=== PATIENT | male | born 1950 | race Caucasian/White ===

== ENCOUNTER → 2016-07-08 | Outpatient (CLI) | payer OTHER | END | disposition home or self-care (01) | LOC: PCVCCLINIC 11:46 | PROVIDERS: ATTEND Internal Medicine | DX: I25.10 Atherosclerotic heart disease of native coronary artery without angina pectoris (principal); I10 Essential (primary) hypertension; E78.5 Hyperlipidemia, unspecified; E11.9 Type 2 diabetes mellitus without complications | CPT/HCPCS: 80061; 93005; G0463 ==

== ENCOUNTER → 2016-08-18 | Outpatient (CLI) | payer OTHER ==
--- NOTE | 2016-08-18 13:43 | PCVCIMAG ---
APPROVED REPORT Study performed: 08/18/2016 11:20:08 EXAM: Comprehensive 2D, Doppler, and color-flow Echocardiogram Patient Location: Echo lab Status: routine Other Information Study Quality: Technically Difficult Indications Pulmonary Hypertension Diabetes Dyspnea CAD Hypertension/HDD tachycardia 2D Dimensions LVEF(%): 67.69 (>50%) IVSd: 12.59 (7-11mm)LVOT Diam: 21.52 (18-24mm) LVDd: 53.42 mm PWd: 12.45 (7-11mm)Ascending Ao: 37.87 (22-36mm) LVDs: 33.13 (25-40mm) Left Atrium: 39.06 (27-40mm) Aortic Root: 29.21 mm LV Single Plane 4CH: 51.86 % LV Single Plane 2CH: 58.49 %Watt's LVEF: 55.17 % Biplane EF: 53.0 % Volumes Left Atrial Volume (Systole) Single Plane 4CH: 53.79 mLSingle Plane 2CH: 62.60 mL LA ESV Index: 25.00 mL/m2 Aortic Valve AoV Peak Masood.: 1.40 m/s AO Peak Gr.: 7.89 mmHgLVOT Max P.36 mmHg LVOT Max V: 0.92 m/s ARTUR Vmax: 2.37 cm2 AI Vmax: 4.97 m/s AI [place]: 2.37 m/s2 AI PHT: 608.03 ms Mitral Valve E/A Ratio: 3.5 MV Decel. Time: 174.54 ms MV E Max Masood.: 1.23 m/s MV A Masood.: 0.35 m/s IVRT: 69.20 ms Pulmonary Valve PV Peak Masood.: 0.93 m/sPV Peak Gr.: 3.46 mmHg Pulmonary Vein P Vein S: 0.30 m/sP Vein A: 0.26 m/s P Vein D: 0.92 m/sP Vein A Dur.: 115.3 msec P Vein S/D Ratio: 0.33 Tricuspid Valve TR Peak Masood.: 3.37 m/s TR Peak Gr.: 45.55 mmHg TV Vmax: 0.70 m/s Left Ventricle The left ventricle is normal size. There is normal LV segmental wall motion. Mild concentric left ventricular hypertrophy. Left ventricular systolic function is normal. The left ventricular ejection fraction is within the normal range. LVEF is 55-60%. Grade III diastolic dysfunction Right Ventricle The right ventricle is normal size. The right ventricular systolic function is normal. Atria The left atrium size is normal. The right atrium size is normal. Aortic Valve The aortic valve is normal in structure. The aortic valve is mildly sclerotic. The aortic valve is trileaflet. Trace aortic regurgitation is present. There is no aortic valvular stenosis. Mitral Valve The mitral valve is normal in structure. Mild mitral valve regurgitation noted. No evidence of mitral valve stenosis. Tricuspid Valve The tricuspid valve is normal in structure. There is mild to moderate tricuspid regurgitation with a PA pressure of 61mmHg. There is moderate pulmonary hypertension. Pulmonic Valve The pulmonary valve is normal in structure. There is no pulmonic valvular regurgitation. Great Vessels The aortic root is normal in size. The ascending aorta is normal in size. The inferior vena cava is mildly dilated with no inspiratory collapse. Pericardium There is no pericardial effusion. <Conclusion> Left ventricular systolic function is normal. Mild concentric left ventricular hypertrophy. There is normal LV segmental wall motion. LVEF is 55-60%. Grade III diastolic dysfunction The aortic valve is mildly sclerotic, trileaflet without stenosis. Trace regurgitation The mitral valve is normal in structure. Mild mitral valve regurgitation noted. Pulmonary artery pressure of 60mmHg There is no pericardial effusion.
== END | disposition home or self-care (01) ==
LOC: PCVCIMAG 11:10
PROVIDERS: ATTEND Internal Medicine
DX: I11.0 Hypertensive heart disease with heart failure (principal); I50.33 Acute on chronic diastolic (congestive) heart failure; I08.3 Combined rheumatic disorders of mitral, aortic and tricuspid valves; R00.1 Bradycardia, unspecified; I44.0 Atrioventricular block, first degree; I25.10 Atherosclerotic heart disease of native coronary artery without angina pectoris; E78.5 Hyperlipidemia, unspecified; I77.89 Other specified disorders of arteries and arterioles; I12.9 Hypertensive chronic kidney disease with stage 1 through stage 4 chronic kidney disease, or unspecified chronic kidney disease; I27.2 Other secondary pulmonary hypertension; N18.9 Chronic kidney disease, unspecified; I65.23 Occlusion and stenosis of bilateral carotid arteries; J44.9 Chronic obstructive pulmonary disease, unspecified; Z79.82 Long term (current) use of aspirin; Z79.4 Long term (current) use of insulin; Z79.899 Other long term (current) drug therapy
CPT/HCPCS: 93005; 93306; G0463

== ENCOUNTER → 2016-08-30 | Outpatient (CLI) | payer OTHER ==
[~2016-08-30] MED LIST: AMLODOPINE PO; ASPI-630 PO; ATOR40TA59 PO; HYDR50TA6 PO; INSU100I13 SQ; INSU100V11 IJ; ISOS30TA19 PO; LISI-334 PO; MULT-208 PO; Metoprolol PO; OMEG1CAP43 PO; POTA10TA12 PO; TORS20TA2 PO
== END | disposition home or self-care (01) ==
LOC: PCVCCLINIC 11:47
PROVIDERS: ATTEND Internal Medicine
DX: I13.0 Hypertensive heart and chronic kidney disease with heart failure and stage 1 through stage 4 chronic kidney disease, or unspecified chronic kidney disease (principal); N18.9 Chronic kidney disease, unspecified; E11.22 Type 2 diabetes mellitus with diabetic chronic kidney disease; I25.10 Atherosclerotic heart disease of native coronary artery without angina pectoris; E78.5 Hyperlipidemia, unspecified; G47.33 Obstructive sleep apnea (adult) (pediatric); I77.9 Disorder of arteries and arterioles, unspecified; Z79.4 Long term (current) use of insulin
CPT/HCPCS: 36415; 85610

== ENCOUNTER 2016-09-16 12:48 | Observation (INO) | payer OTHER ==
[2016-09-16] VITALS (7 sets, daily range): BP systolic 131–177; BP diastolic 65–101
[~2016-09-16] VITALS: Ht 180.3 cm; Wt 124.7 kg
[~2016-09-16 12:48] MED LIST changes: -AMLODOPINE PO; -ASPI-630 PO; -ATOR40TA59 PO; -HYDR50TA6 PO; +HYDROmorphone 2 MG/ML VIAL IV PRN; -INSU100I13 SQ; -INSU100V11 IJ; -ISOS30TA19 PO; +IV RINGERS,LACTATED 1000ML 1,000 ML IV SCH; +LIDOCAINE 1% 1 ML SYRINGE. ID PRN; -LISI-334 PO; +MORPHINE SULFATE 2 MG/ML DISP.SYRIN. IV PRN; -MULT-208 PO; -Metoprolol PO; -OMEG1CAP43 PO; +ONDANSETRON PF 4 MG/2 ML VIAL. IV PRN; -POTA10TA12 PO; +PROCHLORPERAZINE 10 MG/2 ML VIAL. IV PRN; -TORS20TA2 PO; +fentaNYL PF VIAL 100 MCG/2 ML VIAL IV PRN
[2016-09-16] MEDS ORDERED: BACITRACIN 50,000 UNIT in IV NORMAL SALINE 250ML 250 ML IRR ONE (13:30)
[2016-09-16 13:49] LABS: CALCIUM 9.9 mg/dL (8.5-10.1); CREATININE 2.5 mg/dL (0.7-1.3); POTASSIUM 4.2 mmol/L (3.5-5.1)
[2016-09-16 13:50] LABS: HEMATOCRIT 44.7 % (39.0-53.0); HEMOGLOBIN 15.4 g/dL (13.0-17.5); RED BLOOD COUNT 5.28 x10^6/uL (4.30-5.70); RED CELL DISTRIBUTION WIDTH 13.8 % (11.5-14.5); WHITE BLOOD COUNT 14.9 x10^3/uL (4.0-11.0)
[2016-09-16] MEDS ORDERED: 0.9 % SODIUM CHLORIDE 50 ML VIAL. IJ ONE (13:56)
[2016-09-16] MEDS ORDERED: VASOPRESSIN 20 UNIT/ML VIAL. ONE (13:56)
[2016-09-16] MEDS ORDERED: LIDOCAINE 2% PF Vial for OR 5 ML VIAL. ONE (13:57)
[2016-09-16] MEDS ORDERED: PROPOFOL 50 ML IV ONE (13:57)
[2016-09-16] MEDS ORDERED: PHENYLEPHRINE in 0.9% NACL PF 1 MG/10 ML DISP.SYRIN. IV ONE (13:57)
[2016-09-16] MEDS ORDERED: ONDANSETRON PF 4 MG/2 ML VIAL. ONE (13:57)
[2016-09-16] MEDS ORDERED: PROPOFOL 0 ML IV ONE (13:57)
[2016-09-16] MEDS ORDERED: FAMOTIDINE 20 MG/2 ML VIAL ONE (13:57)
[2016-09-16] MEDS ORDERED: ETOMIDATE 20 MG/10 ML VIAL. IV ONE (13:57)
--- NOTE | 2016-09-16 14:01 | EKG ---
[facility] [address] [place] [address] Test Date: 2016-09-16 Test Time: 13:56:55 Pat Name: JASON MYERS Department: Room: Gender: M Podiatry Professor: JAVIER : 1950 Requested By: DANIELLE LOVING Order Number: [id number] Reading MD: Measurements Intervals [place] Rate: 69 P: 45 VT: 324 QRS: -62 QRSD: 110 T: 88 QT: 376 QTc: 409 Interpretive Statements SINUS RHYTHM PROLONGED VT INTERVAL ABNORMAL LEFT AXIS DEVIATION R-S TRANSITION ZONE IN V LEADS DISPLACED TO THE LEFT LEFT ANTERIOR FASCICULAR BLOCK T ABNORMALITY IN HIGH LATERAL LEADS ABNORMAL ECG RI6.01 No previous ECG available for comparison
[2016-09-16] MEDS ORDERED: ASPI-630 PO (14:17)
[2016-09-16] MEDS ORDERED: MULT-208 PO (14:17)
[2016-09-16] MEDS ORDERED: OMEG1CAP43 PO (14:17)
[2016-09-16] MEDS ORDERED: TORS20TA2 PO (14:17)
[2016-09-16] MEDS ORDERED: INSU100I13 SQ (14:17)
[2016-09-16] MEDS ORDERED: LISI-334 PO (14:17)
[2016-09-16] MEDS ORDERED: ISOS30TA19 PO (14:17)
[2016-09-16] MEDS ORDERED: POTA10TA12 PO (14:17)
[2016-09-16] MEDS ORDERED: INSU100V11 IJ (14:17)
[2016-09-16] MEDS ORDERED: ATOR40TA59 PO (14:17)
[2016-09-16 14:36] LABS: INR 1.2 (0.8-1.1); PROTHROMBIN TIME PATIENT 14.3 SEC (11.7-14.0)
[2016-09-16] MEDS ORDERED: LIDOCAINE 2%/EPI 1:100,000 20 ML VIAL. ONE ×2 (14:44→15:09)
--- NOTE | 2016-09-16 14:49 | PDOC ---
MODERATE SEDATION ASSESSMENT RISKS/ALTERNATIVES Risks/Alternatives Risks and alternatives of this type of sedation and procedure discussed with: RISK/ALTERNATIVES: Patient H & P ON CHART H & P H & P on chart and reviewed for co-morbid conditions and appropriate labs. H&P ON CHART: Yes STATUS PREG STATUS ASSESSED: N/A MEDS/ALLERGIES REVIEWED Meds/Allergies Reviewed Medications and Allergies including time and route of recently administered narcotics and sedatives. MEDS/ALLERGIES REVIEWED: Yes ASA RATING ASA RATING: III AIRWAY ASSESSMENT Airway Assessment Airway patency, oral function limitations, presence of caps, crowns, dentures, partials, and ability to extend neck assessed. AIRWAY ASSESSMENT: Yes MALLAMPATI SCORE MALLAMPATI SCORE: III PRE-SEDATION ASSESSMENT PRE-SEDATION ASSESSMENT: Yes DANIELLE LOVING MD Sep 16, 2016 14:49
[2016-09-16] MEDS ORDERED: IOHEXOL 300 MG/ML 100ML VIAL. ONE (15:10)
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
[2016-09-16] MEDS: OMEGA-3 FATTY ACIDS/FISH OIL 1,000 MG CAPSULE. PO SCH (20:09)
[2016-09-16] MEDS: LISINOPRIL 20 MG TABLET PO SCH (20:10)
[2016-09-16] MEDS ORDERED: INSULIN DETEMIR 300 UNITS/3 ML INSULN.PEN. SQ SCH (21:00)
[2016-09-16] MEDS ORDERED: POTASSIUM CHLORIDE 10 MEQ TABLET.ER. PO SCH (21:00)
[2016-09-16] MEDS ORDERED: ATORVASTATIN CALCIUM 40 MG TABLET. PO SCH (21:00)
[2016-09-16] MEDS ORDERED: ISOSORBIDE MONONITRATE ER 30 MG TAB.ER.24H PO SCH (21:00)
[2016-09-16] MEDS: HYDROcodone/APAP 5/325MG 1 TAB TABLET PO PRN (22:56)
--- NOTE | 2016-09-16 23:20 | PDOC ---
Provider Note Provider Note Brief Procedure note: Successful dual chamber pacemaker implantation. CXR in a.m. Anticipate dc in am. DANIELLE LOVING MD Sep 16, 2016 23:20
[2016-09-16] MEDS ORDERED: oxyCODONE/APAP 5/325 1 TAB TABLET PO PRN (23:30)
[2016-09-16] MEDS ORDERED: NO ANTICOAGULANT THERAPY. MC PRN (23:30)
[2016-09-17 03:00] VITALS: BP 121/62
[2016-09-17] MEDS: HYDROcodone/APAP 5/325MG 1 TAB TABLET PO PRN (03:48)
[2016-09-17 07:00] VITALS: BP 136/75
[2016-09-17] MEDS ORDERED: INSULIN ASPART 300 UNITS/3 ML INSULN.PEN SQ SCH (07:30)
[2016-09-17] MEDS ORDERED: ASPIRIN CHEWABLE 81 MG TABLET. PO SCH (08:00)
--- NOTE | 2016-09-17 08:31 | CARD ---
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 46 mL of 2% lidocaine was infiltrated into the skin and subcutaneous tissues for local anesthesia. A n incision was made over the left infraclavicular fossa and using blunt dissection and cautery a pock et was created. Venous access was obtained in the left subclavian vein and 8 [place] sheaths were ins erted. Subsequently, a [employer] bipolar active fixation right ventricular lead model [id number], SN [id number] was advanced under fluoroscopic guidance and the tip was positioned in the right ventricular apex. F ollowing this, a [employer] bipolar active fixation right atrial lead model [id number], SN [id number] was placed in the right atrial appendage under fluoroscopy guidance (a larger curve stylet was used due t o enlarged right atrium). The leads were secured into place and were attached to a [employer] dual-brad mber permanent pacemaker generator model [id number], SN [id number]. This was placed in the pocket that was s ubsequently closed in 3 layers. Hemostasis was secured. At the end of procedure, the right ventricular lead showed sensing amplitude of 12 mV, impedance of 9 60 ohms and a threshold of 0.5volts. The right atrial lead showed a sensing amplitude of 6.2 millivo lts, impedance of 490 ohms and a threshold of 0.8 volts. Patient tolerated the procedure well. There were no immediate complications. CONCLUSION Successful insertion of a dual chamber permanent pacemaker for history of complete heart block.
[2016-09-17] MEDS: OMEGA-3 FATTY ACIDS/FISH OIL 1,000 MG CAPSULE. PO SCH (09:00)
[2016-09-17] MEDS ORDERED: MULTIVITAMIN with MINERAL TABLET. PO SCH (09:00)
[2016-09-17] MEDS ORDERED: TORSEMIDE 20 MG TABLET. PO SCH (09:00)
[2016-09-17] MEDS: LISINOPRIL 20 MG TABLET PO SCH (09:00)
--- NOTE | 2016-09-17 09:32 | RAD ---
Indication post pacemaker placement. Assess for potential complication. PA and lateral views of the chest were obtained and are compared to an examination one day earlier. No acute finding is seen. There has not been a significant change. Bipolar cardiac pacing device is noted. There is no evidence of complication and specifically no pneumothorax is seen. IMPRESSION: No acute finding. No significant change. No evidence of pneumothorax
--- NOTE | 2016-09-17 20:59 | PDOC3 ---
DENISE BENTLEY REVIEW APPRAISER 09/17/162058: Discharge Summary Visit Information Date of Admission: Sep 16, 2016 Date of Discharge: Sep 17, 2016 Admitting Diagnosis: Sick Sinus Syndrome Final Diagnosis Sick Sinus Syndrome Pacemaker Placement Brief Hospital Course Allergies Allergies Coded Allergies Type Severity Reaction Last Updated Verified codeine Allergy Intermediate 09/08/16 No Vital Signs Vital Signs Date Time Temp Pulse Resp B/P (MAP) Pulse Ox O2 Delivery O2 Flow Rate FiO2 09/17/16 08:00 Nasal Cannula 2.0 09/17/16 07:00 97.5 60 22 136/75 (95) 95 97.5 Lab Results Laboratory Tests Test 09/16/16 13:32 09/16/16 16:35 White Blood Count 14.9 x10^3/uL (4.0-11.0) Red Blood Count 5.28 x10^6/uL (4.30-5.70) Hemoglobin 15.4 g/dL (13.0-17.5) Hematocrit 44.7 % (39.0-53.0) Mean Corpuscular Volume 85 fL (79-100) Mean Corpuscular Hemoglobin 29 pg (25-35) Mean Corpuscular Hemoglobin Concent 35 g/dL (31-37) Red Cell Distribution Width 13.8 % (11.5-14.5) Platelet Count 237 x10^3/uL (140-400) Prothrombin Time 14.3 SEC (11.7-14.0) Prothromb Time International Ratio 1.2 (0.8-1.1) Activated Partial Thromboplast Time 31 SEC (24-38) Sodium Level 140 mmol/L (136-145) Potassium Level 4.2 mmol/L (3.5-5.1) Chloride Level 102 mmol/L (98-107) Carbon Dioxide Level 28 mmol/L (21-32) Anion Gap 10 (6-14) Blood Urea Nitrogen 44 mg/dL (8-26) Creatinine 2.5 mg/dL (0.7-1.3) Estimated GFR (Cockcroft-Gault) 26.0 Glucose Level 123 mg/dL (70-99) Calcium Level 9.9 mg/dL (8.5-10.1) Glucose (Fingerstick) 146 mg/dL (70-99) Brief Hospital Course Mr. Marquez is a 66 old male, with a history of SSS, high grade AV block, and complete heart block, who presented electively for insertion of pacemaker. Patient underwent successful insertion of a dual chamber permanent pacemaker. At the end of procedure, the right ventricular lead showed sensing amplitude of 12 mV, impedance of 960 ohms and a threshold of 0.5volts. The right atrial lead showed a sensing amplitude of 6.2 millivolts, impedance of 490 ohms and a threshold of 0.8 volts. Patient tolerated the procedure well. There were no immediate complications. Was monitored overnight, no acute events. Device interrogation revealed normal function. CXR without acute findings or evidence of pneumothorax. Lungs CTA. Extremities without edema. Left pectoral pacemaker incision well-approximated. Steri-strips intact. No drainage or hematoma present. Patient refused to wear left arm immobilizer. Placed in left arm sling. Post operative instructions provided. Patient to follow-up in 2 weeks for wound check with RN. Discharge Information Condition at Discharge: Stable Follow Up: Weeks (2 ) Disposition/Orders: D/C to Home Scheduled Aspirin (Aspirin), 1 TAB PO DAILY, (Reported) Atorvastatin Calcium (Atorvastatin Calcium), 40 MG PO HS, (Reported) Insulin Glargine,Hum.rec.anlog (Lantus Solostar), 70 UNIT SQ DAILY, (Reported) Insulin Regular, Human (Novolin R), 30 UNIT IJ TIDAC, (Reported) Isosorbide Dinitrate (Isosorbide Dinitrate), 60 MG PO HS, (Reported) Lisinopril (Lisinopril), 20 MG PO BID, (Reported) Multivitamin (Multi-Day Vitamins), 1 TAB PO DAILY, (Reported) [place]-3/Dha/Epa/Fish Oil (Fish Oil 1,400 Mg Softgel), 1 EACH PO BID, (Reported) Potassium Chloride (Potassium Chloride), 10 MEQ PO HS, (Reported) Torsemide (Torsemide), 1 TAB PO DAILY, (Reported) DANIELLE LOVING MD 09/18/16 0762: Discharge Summary Brief Hospital Course Brief Hospital Course Pt. seen and examined. Agree with above [facility]NY note. Did well overnight. Device function stable this morning. CXR noted. Follow up in 2 weeks for wound check. Discharge Information Scheduled Aspirin (Aspirin), 1 TAB PO DAILY, (Reported) Atorvastatin Calcium (Atorvastatin Calcium), 40 MG PO HS, (Reported) Insulin Glargine,Hum.rec.anlog (Lantus Solostar), 70 UNIT SQ DAILY, (Reported) Insulin Regular, Human (Novolin R), 30 UNIT IJ TIDAC, (Reported) Isosorbide Dinitrate (Isosorbide Dinitrate), 60 MG PO HS, (Reported) Lisinopril (Lisinopril), 20 MG PO BID, (Reported) Multivitamin (Multi-Day Vitamins), 1 TAB PO DAILY, (Reported) [place]-3/Dha/Epa/Fish Oil (Fish Oil 1,400 Mg Softgel), 1 EACH PO BID, (Reported) Potassium Chloride (Potassium Chloride), 10 MEQ PO HS, (Reported) Torsemide (Torsemide), 1 TAB PO DAILY, (Reported) DENISE BENTLEY APRN Sep 17, 2016 20:59 DANIELLE LOVING MD Sep 18, 2016 07:41
== END 2016-09-17 10:20 | disposition home or self-care (01) ==
LOC: SURG 12:48 → 2 SOUTH 16:30
PROVIDERS: ADMIT Internal Medicine Cardiovascular Disease; ATTEND Internal Medicine Cardiovascular Disease
DX: I49.5 Sick sinus syndrome (principal); Z95.0 Presence of cardiac pacemaker; Z79.4 Long term (current) use of insulin; I44.2 Atrioventricular block, complete
CPT/HCPCS: 33208; 36415; 71010; 71020; 80048; 82962; 85027; 85610; 85730; 93005; 96365; C1785; C1892; C1898; G0378; G0379; J0690; J1815; J2704; J3490; J7050; Q9967; J2370; J2405; S0028; J7030

== ENCOUNTER → 2016-09-30 | Outpatient (CLI) | payer OTHER ==
[2016-09-17 07:00] VITALS: BP 136/75
[~2016-09-30] MED LIST changes: +ASPI-630 PO; +ATOR40TA59 PO; -HYDROmorphone 2 MG/ML VIAL IV PRN; +INSU100I13 SQ; +INSU100V11 IJ; +ISOS30TA19 PO; -IV RINGERS,LACTATED 1000ML 1,000 ML IV SCH; -LIDOCAINE 1% 1 ML SYRINGE. ID PRN; +LISI-334 PO; -MORPHINE SULFATE 2 MG/ML DISP.SYRIN. IV PRN; +MULT-208 PO; +OMEG1CAP43 PO; -ONDANSETRON PF 4 MG/2 ML VIAL. IV PRN; +POTA10TA12 PO; -PROCHLORPERAZINE 10 MG/2 ML VIAL. IV PRN; +TORS20TA2 PO; -fentaNYL PF VIAL 100 MCG/2 ML VIAL IV PRN
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
== END | disposition home or self-care (01) ==
LOC: RAD 14:11
PROVIDERS: ATTEND Nurse Practitioner
DX: Z95.0 Presence of cardiac pacemaker (principal)
CPT/HCPCS: 71020

== ENCOUNTER → 2016-10-05 | Outpatient (CLI) | payer OTHER ==
[2016-09-17 07:00] VITALS: BP 136/75
== END | disposition home or self-care (01) ==
LOC: PCVCCLINIC 10:07
PROVIDERS: ATTEND Internal Medicine
DX: I25.119 Atherosclerotic heart disease of native coronary artery with unspecified angina pectoris (principal); I13.0 Hypertensive heart and chronic kidney disease with heart failure and stage 1 through stage 4 chronic kidney disease, or unspecified chronic kidney disease; E11.22 Type 2 diabetes mellitus with diabetic chronic kidney disease; I42.9 Cardiomyopathy, unspecified; N18.9 Chronic kidney disease, unspecified; I50.32 Chronic diastolic (congestive) heart failure; I77.89 Other specified disorders of arteries and arterioles; G47.33 Obstructive sleep apnea (adult) (pediatric); Z79.4 Long term (current) use of insulin; Z95.1 Presence of aortocoronary bypass graft; Z79.82 Long term (current) use of aspirin; Z87.891 Personal history of nicotine dependence
CPT/HCPCS: 93005; G0463

== ENCOUNTER → 2016-10-27 | Outpatient (CLI) | payer OTHER ==
[2016-10-15 14:51] VITALS: BP 156/81
[~2016-10-27] MED LIST changes: +AMLODOPINE PO; +HYDR50TA6 PO; +Metoprolol PO; +PRAS10TA9 PO
== END | disposition home or self-care (01) ==
LOC: PCVCCLINIC 13:36
PROVIDERS: ATTEND Internal Medicine
DX: I25.10 Atherosclerotic heart disease of native coronary artery without angina pectoris (principal); I13.0 Hypertensive heart and chronic kidney disease with heart failure and stage 1 through stage 4 chronic kidney disease, or unspecified chronic kidney disease; I50.33 Acute on chronic diastolic (congestive) heart failure; N18.3 Chronic kidney disease, stage 3 (moderate); E78.5 Hyperlipidemia, unspecified; G47.33 Obstructive sleep apnea (adult) (pediatric); J44.9 Chronic obstructive pulmonary disease, unspecified; I77.89 Other specified disorders of arteries and arterioles; E11.22 Type 2 diabetes mellitus with diabetic chronic kidney disease; Z79.82 Long term (current) use of aspirin; Z79.4 Long term (current) use of insulin; Z95.0 Presence of cardiac pacemaker; Z87.891 Personal history of nicotine dependence
CPT/HCPCS: 93005; G0463

== ENCOUNTER → 2017-02-01 | Outpatient (CLI) | payer OTHER ==
[2016-10-15 14:51] VITALS: BP 156/81
== END | disposition home or self-care (01) ==
LOC: PCVCCLINIC 13:45
PROVIDERS: ATTEND Internal Medicine
DX: I25.10 Atherosclerotic heart disease of native coronary artery without angina pectoris (principal); I13.0 Hypertensive heart and chronic kidney disease with heart failure and stage 1 through stage 4 chronic kidney disease, or unspecified chronic kidney disease; I50.33 Acute on chronic diastolic (congestive) heart failure; N18.3 Chronic kidney disease, stage 3 (moderate); E78.5 Hyperlipidemia, unspecified; G47.33 Obstructive sleep apnea (adult) (pediatric); J44.9 Chronic obstructive pulmonary disease, unspecified
CPT/HCPCS: 80061; 93005; G0463

== ENCOUNTER → 2017-03-31 | Outpatient (CLI) | payer OTHER | END | disposition home or self-care (01) | LOC: PCVCCLINIC 13:03 | DX: I25.10 Atherosclerotic heart disease of native coronary artery without angina pectoris (principal); I13.0 Hypertensive heart and chronic kidney disease with heart failure and stage 1 through stage 4 chronic kidney disease, or unspecified chronic kidney disease; I50.32 Chronic diastolic (congestive) heart failure; N18.3 Chronic kidney disease, stage 3 (moderate); I77.9 Disorder of arteries and arterioles, unspecified; Z87.891 Personal history of nicotine dependence; Z79.899 Other long term (current) drug therapy; Z79.82 Long term (current) use of aspirin | CPT/HCPCS: 93005; G0463 ==

== ENCOUNTER → 2017-06-30 | Outpatient (CLI) | payer OTHER | END | disposition home or self-care (01) | LOC: PCVCCLINIC 16:17 | DX: I12.9 Hypertensive chronic kidney disease with stage 1 through stage 4 chronic kidney disease, or unspecified chronic kidney disease (principal); E11.22 Type 2 diabetes mellitus with diabetic chronic kidney disease; N18.3 Chronic kidney disease, stage 3 (moderate); I25.10 Atherosclerotic heart disease of native coronary artery without angina pectoris; E78.5 Hyperlipidemia, unspecified; J44.9 Chronic obstructive pulmonary disease, unspecified; G47.33 Obstructive sleep apnea (adult) (pediatric); R94.31 Abnormal electrocardiogram [ECG] [EKG]; Z79.4 Long term (current) use of insulin; Z87.891 Personal history of nicotine dependence; Z79.899 Other long term (current) drug therapy; Z79.82 Long term (current) use of aspirin | CPT/HCPCS: 93005; G0463 ==

== ENCOUNTER → 2017-08-10 | Outpatient (CLI) | payer OTHER ==
[~2017-08-10] MED LIST changes: -AMLODOPINE PO; -ASPI-630 PO; -ATOR40TA59 PO; -HYDR50TA6 PO; -INSU100I13 SQ; -INSU100V11 IJ; -ISOS30TA19 PO; -LISI-334 PO; -MULT-208 PO; -Metoprolol PO; -OMEG1CAP43 PO; +PERFLUTREN PROTEIN-A MICROSPHR 0.22 MG/ML 3 ML VIAL. IV; -POTA10TA12 PO; -PRAS10TA9 PO; -TORS20TA2 PO
== END | disposition home or self-care (01) ==
LOC: PCVCIMAG 14:34
DX: I25.118 Atherosclerotic heart disease of native coronary artery with other forms of angina pectoris (principal); I13.0 Hypertensive heart and chronic kidney disease with heart failure and stage 1 through stage 4 chronic kidney disease, or unspecified chronic kidney disease; E11.22 Type 2 diabetes mellitus with diabetic chronic kidney disease; N18.4 Chronic kidney disease, stage 4 (severe); I50.9 Heart failure, unspecified; I42.8 Other cardiomyopathies; E78.5 Hyperlipidemia, unspecified; J44.9 Chronic obstructive pulmonary disease, unspecified; G47.33 Obstructive sleep apnea (adult) (pediatric); Z79.4 Long term (current) use of insulin; Z95.0 Presence of cardiac pacemaker; Z87.891 Personal history of nicotine dependence; Z79.899 Other long term (current) drug therapy; Z79.82 Long term (current) use of aspirin; Z88.8 Allergy status to other drugs, medicaments and biological substances
CPT/HCPCS: 80061; 93005; C8929; G0463; Q9956

== ENCOUNTER → 2018-02-15 | Outpatient (CLI) | payer OTHER ==
[2016-10-15 14:51] VITALS: BP 156/81
[~2018-02-15] MED LIST changes: +AMLODOPINE PO; +ASPI-630 PO; +ATOR40TA59 PO; +HYDR50TA6 PO; +INSU100I13 SQ; +INSU100V11 IJ; +ISOS30TA19 PO; +LISI-334 PO; +MULT-208 PO; +Metoprolol PO; +OMEG1CAP43 PO; -PERFLUTREN PROTEIN-A MICROSPHR 0.22 MG/ML 3 ML VIAL. IV; +POTA10TA12 PO; +PRAS10TA9 PO; +TORS20TA2 PO
== END | disposition home or self-care (01) ==
LOC: PCVCCLINIC 14:09
PROVIDERS: ATTEND Internal Medicine
DX: I25.118 Atherosclerotic heart disease of native coronary artery with other forms of angina pectoris (principal); I42.8 Other cardiomyopathies; E78.5 Hyperlipidemia, unspecified; I12.9 Hypertensive chronic kidney disease with stage 1 through stage 4 chronic kidney disease, or unspecified chronic kidney disease; E11.22 Type 2 diabetes mellitus with diabetic chronic kidney disease; N18.4 Chronic kidney disease, stage 4 (severe); J44.9 Chronic obstructive pulmonary disease, unspecified; G47.33 Obstructive sleep apnea (adult) (pediatric); E11.9 Type 2 diabetes mellitus without complications; Z79.4 Long term (current) use of insulin; Z79.82 Long term (current) use of aspirin; Z87.891 Personal history of nicotine dependence
CPT/HCPCS: 36415; 80061; 93005; 93280; G0463

== ENCOUNTER → 2018-04-07 | Outpatient (CLI) | payer OTHER ==
[2016-10-15 14:51] VITALS: BP 156/81
== END | disposition home or self-care (01) ==
LOC: PCVCCLINIC 13:52
PROVIDERS: ATTEND Internal Medicine
DX: I25.118 Atherosclerotic heart disease of native coronary artery with other forms of angina pectoris (principal); I10 Essential (primary) hypertension; I42.8 Other cardiomyopathies; E78.5 Hyperlipidemia, unspecified; I12.0 Hypertensive chronic kidney disease with stage 5 chronic kidney disease or end stage renal disease; E11.22 Type 2 diabetes mellitus with diabetic chronic kidney disease; N18.5 Chronic kidney disease, stage 5; G47.33 Obstructive sleep apnea (adult) (pediatric); Z79.4 Long term (current) use of insulin; Z87.891 Personal history of nicotine dependence; Z79.82 Long term (current) use of aspirin
CPT/HCPCS: 93005; 93280; G0463

== ENCOUNTER → 2018-10-23 | Outpatient (CLI) | payer OTHER ==
[2016-10-15 14:51] VITALS: BP 156/81
== END | disposition home or self-care (01) ==
LOC: PCVCCLINIC 15:47
PROVIDERS: ATTEND Internal Medicine
DX: I25.118 Atherosclerotic heart disease of native coronary artery with other forms of angina pectoris (principal); I25.5 Ischemic cardiomyopathy; I12.9 Hypertensive chronic kidney disease with stage 1 through stage 4 chronic kidney disease, or unspecified chronic kidney disease; E11.22 Type 2 diabetes mellitus with diabetic chronic kidney disease; N18.4 Chronic kidney disease, stage 4 (severe); E78.5 Hyperlipidemia, unspecified; J44.9 Chronic obstructive pulmonary disease, unspecified; G47.33 Obstructive sleep apnea (adult) (pediatric); Z79.4 Long term (current) use of insulin
CPT/HCPCS: 36415; 80061; 93005; G0463

== ENCOUNTER → 2018-12-20 | Outpatient (CLI) | payer OTHER ==
[2016-10-15 14:51] VITALS: BP 156/81
--- NOTE | 2018-12-20 16:57 | PCVCIMAG ---
APPROVED REPORT Study performed: 12/20/2018 15:58:46 EXAM: Comprehensive 2D, Doppler, and color-flow Echocardiogram Patient Location: Echo lab Status: routine BSA: 2.36 HR: 88 bpmBP: 140/90 mmHg Rhythm: Pacemaker Other Information Study Quality: Technically Difficult Risk Factors: Cardiac Risk Factors: HTN, Hyperlipidemia, Pacemaker Indications Dyspnea Ischemic cardiomyopathy, COPD 2D Dimensions IVSd: 11.75 (7-11mm)LVOT Diam: 20.44 (18-24mm) LVDd: 48.82 mm PWd: 11.47 (7-11mm)Ascending Ao: 38.89 (22-36mm) LVDs: 44.86 (25-40mm) Left Atrium: 48.53 (27-40mm) Aortic Root: 40.56 mm LV Single Plane 4CH: 16.59 % LV Single Plane 2CH: 38.37 % Biplane EF: 26.4 % Volumes Left Atrial Volume (Systole) Single Plane 4CH: 45.38 mLSingle Plane 2CH: 27.35 mL LA ESV Index: 17.00 mL/m2 Aortic Valve AoV Peak Masood.: 1.15 m/s AO Peak Gr.: 5.31 mmHgLVOT Max P.53 mmHg LVOT Max V: 0.94 m/s ARTUR Vmax: 2.68 cm2 AI Vmax: 3.93 m/s AI [place]: 1.93 m/s2 AI PHT: 597.81 ms Pulmonary Valve PV Peak Gr.: 3.01 mmHg Tricuspid Valve TR Peak Masood.: 4.00 m/s TR Peak Gr.: 64.08 mmHg Left Ventricle The left ventricle is normal size. Regional wall motion abnormalities are noted. There is normal left ventricular wall thickness. Left ventricular systolic function is severely decreased. LVEF 30-35%. This study is not technically sufficient to allow evaluation of the LV diastolic function. Right Ventricle The right ventricle is normal size. The right ventricular systolic function is normal. Pacemaker lead is present in the right ventricle. Atria The left atrium size is normal. The right atrium size is normal. Aortic Valve The aortic valve is normal in structure. Mild aortic regurgitation. There is no aortic valvular stenosis. Mitral Valve The mitral valve is normal in structure. Moderate mitral regurgitation No evidence of mitral valve stenosis. Tricuspid Valve The tricuspid valve is normal in structure. Mild tricuspid regurgitation. Pulmonary artery pressure is 65 mmHg. Pulmonic Valve The pulmonary valve is normal in structure. There is no pulmonic valvular regurgitation. Great Vessels The aortic root is normal in size. IVC is normal in size and collapses >50% with inspiration. Pericardium There is no pericardial effusion. <Conclusion> Left ventricular systolic function is severely decreased. LVEF 30-35%. The aortic valve is normal in structure. Mild aortic regurgitation. The mitral valve is normal in structure. Moderate mitral regurgitation Mild tricuspid regurgitation. Pulmonary artery pressure of 65 mmHg. There is no pericardial effusion.
== END | disposition home or self-care (01) ==
LOC: PCVCIMAG 15:25
PROVIDERS: ATTEND Internal Medicine
DX: I08.3 Combined rheumatic disorders of mitral, aortic and tricuspid valves (principal); I11.0 Hypertensive heart disease with heart failure; I50.33 Acute on chronic diastolic (congestive) heart failure; Z87.891 Personal history of nicotine dependence; I42.9 Cardiomyopathy, unspecified; Z88.8 Allergy status to other drugs, medicaments and biological substances
CPT/HCPCS: 93306

== ENCOUNTER → 2019-03-02 | Outpatient (CLI) | payer OTHER ==
[2016-10-15 14:51] VITALS: BP 156/81
[~2019-03-02] MED LIST changes: -POTA10TA12 PO; +POTASSIUM CHLO10 ME1 PO
== END | disposition home or self-care (01) ==
LOC: PCVCCLINIC 15:00
PROVIDERS: ATTEND Internal Medicine
DX: I25.811 Atherosclerosis of native coronary artery of transplanted heart without angina pectoris (principal); I25.5 Ischemic cardiomyopathy; E78.5 Hyperlipidemia, unspecified; I12.9 Hypertensive chronic kidney disease with stage 1 through stage 4 chronic kidney disease, or unspecified chronic kidney disease; N18.9 Chronic kidney disease, unspecified; G47.33 Obstructive sleep apnea (adult) (pediatric); E11.22 Type 2 diabetes mellitus with diabetic chronic kidney disease; Z79.4 Long term (current) use of insulin; Z95.0 Presence of cardiac pacemaker; Z90.09 Acquired absence of other part of head and neck; Z82.49 Family history of ischemic heart disease and other diseases of the circulatory system; Z79.82 Long term (current) use of aspirin
CPT/HCPCS: 93005; G0463